=== PATIENT | female | born 1980 | race Two or more races ===

== ENCOUNTER 2018-04-18 19:04 | Observation (INO) | payer OTHER ==
[~2018-04-18] VITALS: Ht 164 cm; Wt 76.0 kg
[2018-04-18] MEDS ORDERED: PREN1TAB78 MT (19:47)
[2018-04-18] MEDS ORDERED: LEVO50TA MT (19:47)
[2018-04-18] MEDS ORDERED: ACETAMINOPHEN 500MG TABLET PO ONE (20:15)
[2018-04-18] MEDS ORDERED: ACETAMINOPHEN 500MG TABLET PO NR (20:30)
[2018-04-18 20:41] LABS: CLARITY URINE CLEAR (CLEAR); COLOR URINE YELLOW (YELLOW); KETONES URINE NEGATIVE (NEGATIVE); LEUKOCYTE ESTERASE URINE NEGATIVE (NEGATIVE); NITRITE URINE NEGATIVE (NEGATIVE); OCCULT BLOOD URINE NEGATIVE (NEGATIVE); PROTEIN URINE NEGATIVE (NEGATIVE); SPECIFIC GRAVITY URINE 1.005 (1.005-1.030); UROBILINOGEN URINE 0.2 E.U./dL (0.2-1.0)
[2018-04-18] MEDS ORDERED: CITRIC ACID/SODIUM CITRATE SOLN 30ML UDC PO NR (21:15)
[2018-04-18] MEDS ORDERED: CITRIC ACID/SODIUM CITRATE SOLN 30ML UDC PO ONE (21:15)
== END 2018-04-18 21:45 | disposition home or self-care (01) ==
LOC: INTOOBSV 19:04 → L&D 19:04
PROVIDERS: ADMIT Obstetrics & Gynecology; ATTEND Obstetrics & Gynecology
DX: O26.893 Other specified pregnancy related conditions, third trimester (principal); R10.31 Right lower quadrant pain; O09.523 Supervision of elderly multigravida, third trimester; Z3A.31 31 weeks gestation of pregnancy
CPT/HCPCS: 81003; G0378; 99281